=== PATIENT | female | born 1970 | race Caucasian/White ===

== ENCOUNTER 2018-05-26 15:32 | Emergency (ER) | payer OTHER, SELFPAY ==
[2018-05-26 15:37] VITALS: BP 111/73; PULSE 72; RESP 22; TEMP 36.6; O2SAT 100
--- NOTE | 2018-05-26 15:51 | DI.CT_ITS ---
SYMPTOMS/DIAGNOSIS: RIGHT-SIDED CHEST AND ABDOMINAL PAIN CT ANGIOGRAPHY, CHEST: CT angiography was performed with multi slice acquisition and multi planar and 3D reconstruction. CT angiography of the chest was performed according to the usual protocol. 100 cc of Omnipaque 350 was utilized. The lungs are clear and well expanded. No pleural effusion seen. No evidence of pulmonary embolic disease. No thoracic aortic aneurysm or dissection. No mediastinal or hilar adenopathy or mass. CONCLUSION: Negative CT angiography of the chest. ABDOMINAL AND PELVIC CTA: CT angiography was performed with multi slice acquisition and multi planar and 3D reconstruction. CT examination of the abdomen and pelvis was performed following the CT angiography examination of the chest. Abdominal aorta appears normal and all major branches appear intact. The liver, spleen and pancreas appear normal. No biliary dilatation seen and gallbladder is CT normal. Adrenals appear normal bilaterally. Left kidney is unremarkable except for a tiny nonobstructing upper pole calculus. Left ureter is unremarkable in appearance. There is mild right hydronephrosis and hydroureter to the level of the ureterovesical junction, where there is an apparent intramural obstructing 2-3 mm in diameter stone. No additional ureteral stones identified. No significant abdominal wall hernia seen. No abdominal or pelvic adenopathy. Appendix appears normal. No evidence of diverticulitis or bowel obstruction. CONCLUSION: Mild right hydronephrosis and hydroureter secondary to 2-3 mm in diameter obstructing right UVJ stone. No additional findings apart from nonobstructing left renal calculus.
--- NOTE | 2018-05-26 15:57 | ED.GENADUL_ITS ---
Discharge Plan Disposition Patient Disposition: HOME Condition: Stable Discharge Details Chief Complaint: FlankPain Clinical Impression: Right flank pain, Obstruction of right ureteropelvic junction (UPJ) due to stone Primary Care Provider: Le Redd ED Provider: Barak Kemp Home Meds and New Rx's Prescriptions: New ondansetron 4 mg tablet,disintegrating 4 mg PO TID PRN (Reason: nausea and vomiting) 5 Days Qty: 30 RF: 0 oxycodone 5 mg tablet 5 mg PO Q4H PRN (Reason: pain) Qty: 12 RF: 0 Continue SAMAN 180 MG tablet 180 mg PO DAILY RF: 0 ergocalciferol (vitamin D2) [Vitamin D2] 50,000 UNIT capsule 1 tab-cap PO Qty: 12 RF: 3 montelukast [Singulair] 10 MG tablet 10 mg PO HS PRNQty: 90 RF: 12 rizatriptan [Maxalt] 5 MG tablet 5 mg PO PRN RF: 0 cyclobenzaprine 10 MG tablet 10 mg PO TID PRNQty: 30 RF: 0 tramadol 50 MG tablet 50 mg PO TID PRNQty: 30 RF: 0 prochlorperazine maleate 10 MG tablet 10 mg PO TID PRNQty: 15 RF: 0 blood sugar diagnostic [Blood Glucose Test] 1 EACH strip 1 ea Miscellaneous DAILY Qty: 100 RF: 12 lancets 1 EACH misc 1 ea Miscellaneous DAILY Qty: 100 RF: 12 estradiol [Vagifem] 10 MCG tablet 10 mcg VG 2X Week Qty: 25 RF: 0 metaxalone [Skelaxin] 800 MG tablet 800 tab PO TID Qty: 270 RF: 0 cetirizine [Zyrtec] 10 MG capsule 10 mg PO DAILY RF: 0 Discharge Instructions Instructions: Kidney Stones (ED) Additional Instructions: take 1000mg tylenol and 600mg ibuprofen every 6 hours for pain as needed. If you need additional pain relief take 1 oxycodone. do not drink alcohol or drive if you take this medicine if you have persistent vomit or high fevers return to the emergency department Discharge Data Discharge Physician: Barak Kemp Medical Decision Making 47 yo female comes in with right sided oblique and lower right chest pain that started acutely just prior to arrival and has neve rhad this pain before and appears uncomfortable on exam. Given location of pain will image to eval for pe , kidney stone, pneumoperitoneum. Pain is not exertional and no chest pressure so doubt acs at this time labs unremarkable, and ct shows no pe, does have a small 2mm stone at the right uvj. Her pain is controlled now. will send home with pain medications and nausea medicine and have her f/u with urology, return precautions given Differential Diagnosis cholecystitis, kidney stone, Pe, pneumoperitoneum HPI General Mode of arrival: ambulatory . Date/Time Provider Initiated Documentation: 05/26/18 15:39 . Limitations to Documentation: no limitations . Information obtained by: patient . History of Present Illness 47 year old F presents to the emergency department with the chief complaint of right sided abdominal and chest pain, described as severe, with intensity rated at 9. Quality is described as sharp, No relieving factors improve symptom(s), No exacerbating factors reported . Patient notes other (nausea) . Patient did receive the following treatments prior to arrival, none Related Data Home Medications Medication Instructions Recorded Confirmed Saman 180 mg PO DAILY tab-cap 01/20/02/09/17 ergocalciferol (vitamin D2) 1 tab-cap PO M-W-F #12 tab-cap 02/23/16 [Vitamin D2] montelukast [Singulair] 10 mg PO HS PRN #90 tab-cap 03/09/17 rizatriptan [Maxalt] 5 mg PO PRN 09/08/17 10/08/17 cyclobenzaprine 10 mg PO TID PRN #30 tab-cap 09/28/17 cetirizine [Zyrtec] 10 mg PO DAILY 10/08/17 10/08/17 tramadol 50 mg PO TID PRN #30 tab-cap 10/10/17 prochlorperazine maleate 10 mg PO TID PRN #15 tab-cap 11/07/17 blood sugar diagnostic [Blood #100 strip 01/10/18 Glucose Test] lancets #100 ea 01/10/18 estradiol [Vagifem] 10 mcg VG 2X Week #25 tab-cap NS 02/06/18 metaxalone [Skelaxin] 800 tab PO TID #270 tab-cap 03/22/18 ondansetron 4 mg PO TID PRN 5 Days #30 tab 05/26/18 oxycodone 5 mg PO Q4H PRN #12 tab 05/26/18 Previous Rx's Medication Instructions Recorded blood sugar diagnostic [Blood #100 strip 01/10/18 Glucose Test] lancets #100 ea 01/10/18 estradiol [Vagifem] 10 mcg VG 2X Week #25 tab-cap NS 02/06/18 metaxalone [Skelaxin] 800 tab PO TID #270 tab-cap 03/22/18 ondansetron 4 mg PO TID PRN 5 Days #30 tab 05/26/18 oxycodone 5 mg PO Q4H PRN #12 tab 05/26/18 Allergies Allergy/AdvReac Type Severity Reaction Status Date / Time Sulfa (Sulfonamide Allergy Severe Significant Unverified 05/26/18 17:23 Antibiotics) swelling homatropine methylbromide Allergy Intermediate Itchy Unverified 05/26/18 17:23 [From Hycodan] hydrocodone Allergy Intermediate ITCHY Unverified 05/26/18 17:23 hydrocodone bitartrate Allergy Intermediate Itchy Unverified 05/26/18 17:23 [From Hycodan] Penicillins Allergy Intermediate RASH HIVES Unverified 05/26/18 17:23 citalopram AdvReac Mild HEADACHE Unverified 05/26/18 17:23 NSAIDS (Non-Steroidal AdvReac Unknown Unverified 05/26/18 17:23 Anti-Inflamma General Stated Complaint: FlankPain LEILA: 3 Review of Systems Review of Systems All systems reviewed & are unremarkable except as noted in HPI and below Constitutional Denies chills, Denies fever(s) and Denies weakness Eyes Denies loss of vision ENT Denies change in voice Cardiovascular Denies dyspnea Respiratory Denies dyspnea Gastrointestinal Denies vomiting Genitourinary Denies dysuria Musculoskeletal Denies joint swelling Integumentary/Breasts Denies rash Neurologic Denies loss of vision and Denies weakness Psychiatric Denies depression Endocrine Denies cold intolerance and Denies heat intolerance Allergic/Immunologic Reports urticaria PFSH Family History Mother No problems noted. Father Essential hypertension Heart disease Hyperlipidemia Cerebrovascular accident Glaucoma Sister No problems noted. Sister No problems noted. Sister No problems noted. Brother No problems noted. Brother No problems noted. Grandfather Diabetes Essential hypertension Personal history of malignant neoplasm Heart disease Hyperlipidemia Grandfather Heart disease Grandmother Essential hypertension Hyperthyroidism Grandmother Essential hypertension Heart disease Hyperlipidemia Medical History Endometriosis Internal hemorrhoid Iron deficiency anemia Pre-eclampsia affecting , antepartum Thyroid nodule Social History Smoking/Tobacco Use Status: Former Tobacco Use Surgical History section Excision, Distal Clavicle Hysterectomy, Laproscopic Left Salpingectomy (02/09/17) Ligation of fallopian tube (~11/2003) Shoulder Manipulation (10/24/12) Tonsillectomy Exam Const Orientation: alert HENMT Head: normal to inspection Ears: external ears normal General nose exam: external nose normal Mouth: moist mucous membranes Eyes General: appearance normal, both eyes and all related structures Neck Neck: normal visual inspection Resp Effort & Inspection: normal respiratory effort and able to speak in complete sentences Cardio Rate: regular rate GI Inspection: normal to inspection and other (right oblique tenderness) Skin General skin exam: no rashes or lesions noted Neuro General: alert and oriented x3 Extrem General: normal to inspection Psych Mental Status: mental status grossly normal Course Vital Signs Temperature 36.6 C 05/26/18 15:37 Pulse 72 05/26/18 15:37 Respiratory Rate 22 05/26/18 15:37 Blood Pressure 111/73 05/26/18 15:37 Pulse Oximetry 100 05/26/18 15:37 Temperature 36.6 C 05/26/18 15:37 Temperature Source Skin 05/26/18 15:37 Pulse 72 05/26/18 15:37 Respiratory Rate 22 05/26/18 15:37 Blood Pressure 111/73 05/26/18 15:37 Pulse Oximetry 100 05/26/18 15:37 Oxygen Delivery Method Room Air 05/26/18 15:37 Oxygen Flow Rate 0 05/26/18 15:37 Pain Level 10 05/26/18 15:37 Comment 05/26/18 15:37
[2018-05-26] MEDS: Normal Saline 1,000 ML 1000 ML IV (16:05)
[2018-05-26] MEDS: Ondansetron 4 MG/2 ML VIAL IVP (16:07)
[2018-05-26] MEDS: fentaNYL 100 MCG/2 ML VIAL 50 MCG IVP ×2 (16:08→16:49)
[2018-05-26 16:12] LABS: Abs Immature Grans 0.02 k/cumm (0.0-0.09); Absolute Basophil Count 0.03 k/cumm (0.0-0.2); Absolute Eosinophil Count 0.08 k/cumm (0.0-0.7); Absolute Monocyte Count 1.06 k/cumm (0.11-0.7); Basophils % 0.2; Eosinophils % 0.6; HCT 46.3 % (36.0-46.0); HGB 16.1 g/dL (12.0-15.5); Immature Grans % 0.2; Lymphocytes % 32.7; Mean Corp. HGB Concentration 34.8 g/dL (32.0-36.0); Mean Corpuscular Volume 86.4 fL (80-95); Mean Platelet Volume 10.1 fL (8.0-11.0); Monocytes % 8.1; Neutrophils % 58.2; Platelet Count 233 x1000/uL (130-400); RBC 5.36 m/cumm (4.00-5.20); RBC Distribution Width 12.9 % (11.7-14.6); White Blood Cell Count 13.07 k/cumm (4.4-10.8)
[2018-05-26] MEDS: Ketorolac 15 MG/ML VIAL IVP (16:15)
[2018-05-26 16:21] LABS: Absolute Lymphocyte Count 4.27 k/cumm (1.2-3.4); Absolute Neutrophil Count 7.61 k/cumm (1.2-6.7)
[2018-05-26 16:26] LABS: ALT 26 U/L (12-78); AST 15 U/L (15-37); Albumin 4.1 g/dL (3.4-5.0); Alkaline Phosphatase 71 U/L (46-116); Anion Gap 13.7 mmol/L (3-11); BUN 18 mg/dL (7-18); Bilirubin, Direct 0.11 mg/dL (0.00-0.20); Bilirubin, Total 0.5 mg/dL (0.2-1.0); CO2 24.3 mmol/L (21.0-32.0); CREATININE 0.89 mg/dL (0.55-1.02); Calcium 9.3 mg/dL (8.5-10.1); Chloride 104 mmol/L (98-107); Glucose 99 mg/dL (70-100); INR 1.1 (1.0-3.5); Lipase 214 U/L (73-393); Magnesium 2.1 mg/dL (1.8-2.4); Potassium 3.6 mmol/L (3.5-5.1); Prothrombin Time 10.5 sec (9.3-10.8); Sodium 142 mmol/L (136-145)
[2018-05-26 16:28] LABS: Troponin I < 0.02 ng/mL (0.00-0.06)
[2018-05-26] MEDS: Omnipaque 350 MG/ML 100 ML BTL IJ (16:32)
--- NOTE | 2018-05-26 17:08 | DI.VRAD_ITS ---
EXAM: CT Angiography Chest With Intravenous Contrast CLINICAL HISTORY: 47 years old, female; Pain; Chest pain; Right-sided chest pain; Abdominal pain; Generalized; Patient HX: Right sided chest/abdominal pain TECHNIQUE: Axial computed tomographic angiography images of the chest with intravenous contrast using pulmonary embolism protocol. MIP reconstructed images were created and reviewed. COMPARISON: No relevant prior studies available. FINDINGS: No evidence of PE. No significant focal consolidation. No pleural effusion. No pneumothorax. No adenopathy. Unremarkable upper abdomen. No acute mediastinal or aortic abnormality. Impression: No specific etiology identified for the patient's symptoms. EXAM: CT Angiography Abdomen With Intravenous Contrast CLINICAL HISTORY: 47 years old, female; Pain; Chest pain; Right-sided chest pain; Abdominal pain; Generalized; Patient HX: Right sided chest/abdominal pain TECHNIQUE: Axial computed tomographic angiography images of the abdomen with intravenous contrast. MIP reconstructed images were created and reviewed. COMPARISON: CR CHEST 2 VIEWS PA,LAT 03/14/2016 8:23 AM FINDINGS: 2.3 mm stone at the right ureterovesical junction resulting in mild obstruction of the right kidney. Appendix is normal. Normal appearing solid organs. No intestinal obstruction. No free fluid. No free air. No inflammatory changes. Impression: 2.3 mm stone at the right ureterovesical junction resulting in mild obstruction of the right kidney. Dictated and Authenticated by: Porfirio Fernández MD. Ordering:GAGE HARMON MD
[2018-05-26] MEDS: HYDROmorphone 2 MG/ML VIAL 1 MG IVP (17:17)
[2018-05-26] MEDS: Ketorolac 30 MG/ML VIAL IVP (17:17)
[2018-05-26 17:42] LABS: Bilirubin Negative (Negative); Blood Negative (Negative); Clarity Clear; Glucose Negative (Negative); Ketones Negative (Negative); Leukocyte Esterase Negative (Negative); Nitrite Negative (Negative); Urobilinogen 0.2 EU/dL (Up TO 0.2)
[2018-05-26] MEDS: oxyCODONE 5 MG TAB PO (18:06)
[2018-05-26] MEDS: Ondansetron O.D.T. 4 MG TABEF PO (18:09)
[2018-05-26] MEDS: oxyCODONE 5 MG TAB 20 MG PO (18:11)
[2018-05-26 18:14] VITALS: BP 134/90; PULSE 71; TEMP 36.5; O2SAT 99
[2018-05-26 18:22] VITALS: BP 134/90; PULSE 71; TEMP 36.5; O2SAT 99
== END 2018-05-26 18:29 | disposition home or self-care (01) ==
LOC: ER 18:30
PROVIDERS: Emergency Provider Emergency Medicine; PCP Family Medicine
DX: N13.5 Crossing vessel and stricture of ureter without hydronephrosis (principal); R10.9 Unspecified abdominal pain; R11.0 Nausea
CPT/HCPCS: 36415; 71275; 74177; 80053; 80076; 83690; 93005; 96361; 96374; 96375; 96376; 99285; 81003; 83735; 84484; 85025; 85610; 93010; J1885; J2405; J3010; J3490

== ENCOUNTER 2018-06-06 12:54 | Outpatient (REF) | payer OTHER, SELFPAY ==
[2018-06-08 20:41] LABS: Source: Kidney
== END 2018-06-06 13:14 ==
LOC: LBN 12:54
PROVIDERS: PCP Family Medicine; Visit Provider Urology
DX: N20.0 Calculus of kidney (principal)
CPT/HCPCS: 82360

== ENCOUNTER 2018-06-12 00:12 | Outpatient (CLI) | payer OTHER, SELFPAY ==
--- NOTE | 2018-06-12 13:50 | DI.US_ITS ---
SYMPTOMS/DIAGNOSIS: RIGHT URETERAL CALCULUS, N20.1, ? RESIDUAL HYDRONEPHROSIS RENAL ULTRASOUND: Comparison CT scan is 05/26/18. The right kidney measures 11.6 cm long. No renal mass, calculus or obstruction is seen. There is normal blood flow to the right kidney. The left kidney measures 11.6 cm long. No renal mass or hydronephrosis is identified. There is a 0.7 mm echogenic focus in the mid pole of the left kidney. This corresponds to a calcification seen in the renal cortex on the CT scan from 05/26/18. There is normal blood flow to the left kidney. The prevoid urinary bladder volume is 241 cc. The bladder wall appears smooth. No intraluminal masses are present. Both ureteral jets were visualized. Postvoid urinary bladder volume is 11 cc. IMPRESSION: No evidence of hydronephrosis. Stable left renal calcification.
== END 2018-06-12 00:32 ==
PROVIDERS: PCP Family Medicine; Visit Provider Urology
DX: N20.1 Calculus of ureter (principal)
CPT/HCPCS: 76770

== ENCOUNTER 2018-07-10 09:50 | Outpatient (CLI) | payer OTHER, SELFPAY ==
[2018-07-10 11:51] LABS: Iron 164 ug/dL (50-175)
[2018-07-10 12:00] LABS: ALT 43 U/L (12-78); AST 23 U/L (15-37); Albumin 3.7 g/dL (3.4-5.0); Alkaline Phosphatase 68 U/L (46-116); Anion Gap 6.1 mmol/L (3-11); BUN 16 mg/dL (7-18); Bilirubin, Total 0.8 mg/dL (0.2-1.0); CO2 30.9 mmol/L (21.0-32.0); Calcium 9.4 mg/dL (8.5-10.1); Chloride 103 mmol/L (98-107); Cholesterol 228 mg/dL (50-200); Glucose 100 mg/dL (70-100); HDL Cholesterol 75 mg/dL (40-60); LDL CHOLESTEROL 137 mg/dL (<100); Potassium 4.3 mmol/L (3.5-5.1); Sodium 140 mmol/L (136-145); TSH (W/Ref FT4) 1.78 uIU/mL (0.358-3.74); Total Protein 6.8 g/dL (6.4-8.2); Triglyceride 84 mg/dL (30-150)
[2018-07-10 12:51] LABS: Hemoglobin A1C 5.3 % (4.5-6.2)
[2018-07-12 04:31] LABS: Vitamin D 25 Total 29.6 ng/ml (30-100)
== END 2018-07-10 10:10 ==
PROVIDERS: PCP Family Medicine; Visit Provider Family Medicine
DX: D50.9 Iron deficiency anemia, unspecified (principal); E55.9 Vitamin D deficiency, unspecified; E04.1 Nontoxic single thyroid nodule; R73.09 Other abnormal glucose; Z00.00 Encounter for general adult medical examination without abnormal findings
CPT/HCPCS: 36415; 80053; 80061; 82306; 83721; 83036; 83540; 84443

== ENCOUNTER 2018-07-11 16:39 | Outpatient (CLI) | payer OTHER, SELFPAY ==
--- NOTE | 2018-07-11 15:00 | DI.RAD_ITS ---
SYMPTOMS/DIAGNOSIS: ROLLED RT ANKLE RIGHT ANKLE: Comparison is made with [id number]. No fracture or ankle mortise widening is seen. IMPRESSION: Negative right ankle.
== END 2018-07-11 16:59 ==
PROVIDERS: PCP Family Medicine; Visit Provider Psychiatry & Neurology Neurology
DX: M25.571 Pain in right ankle and joints of right foot (principal); S93.401A Sprain of unspecified ligament of right ankle, initial encounter
CPT/HCPCS: 73610

== ENCOUNTER 2018-07-19 11:09 | Outpatient (CLI) | payer OTHER, SELFPAY ==
--- NOTE | 2018-07-19 10:38 | DI.US_ITS ---
SYMPTOM/DIAGNOSIS: PAIN AFTER FALL, M79.605 LEFT LOWER EXTREMITY ULTRASOUND: In the mid to distal thigh, there are superficial veins which are non compressible and contain thrombus. The deep venous system appears freely compressible. No deep venous thrombosis is identified. No Kline's cyst is seen. IMPRESSION: Superficial thrombophlebitis of the distal medial thigh. No deep venous thrombosis is identified.
== END 2018-07-19 11:29 ==
PROVIDERS: PCP Family Medicine; Visit Provider Internal Medicine
DX: M79.652 Pain in left thigh (principal); I80.02 Phlebitis and thrombophlebitis of superficial vessels of left lower extremity
CPT/HCPCS: 93971

== ENCOUNTER 2018-08-03 00:49 | Outpatient (CLI) | payer OTHER, SELFPAY ==
--- NOTE | 2018-08-03 08:25 | DI.MRI_ITS ---
SYMPTOM/DIAGNOSIS: RT SHOULDER PAIN, ? ROTATOR CUFF TEAR RIGHT SHOULDER MRI: There are no plain films for comparison. Proton density and fat suppressed T 2 axial and coronal and T 1 and fat suppressed T 2 sagittal sequences were performed. There is no evidence of a joint effusion. There are mild degenerative changes of the AC joint but no evidence of impingement. There is no fluid in the subacromial subdeltoid bursa. No rotator cuff tendon tears are identified. There is question of some increased signal in the superior labrum which could represent a labral tear. IMPRESSION: Question of a superior labral tear. No evidence of a rotator cuff tear.
== END 2018-08-03 01:09 ==
PROVIDERS: PCP Family Medicine; Visit Provider Orthopaedic Surgery
DX: M25.511 Pain in right shoulder (principal); M19.011 Primary osteoarthritis, right shoulder
CPT/HCPCS: 73221

== ENCOUNTER 2018-10-11 00:45 | Outpatient (CLI) | payer OTHER, SELFPAY ==
--- NOTE | 2018-10-11 07:02 | DI.RAD_ITS ---
SYMPTOM/DIAGNOSIS: INJURY GLENOID LABRUM, S43.431A, SUPERIOR GLENOID LABRUM LESION RT SHOULDER FLUOROSCOPY RIGHT SHOULDER INJECTION: Fluoroscopy Time: 13.8 seconds Fluoroscopy was provided for Dr. Weeks for guidance with right shoulder injection. Please see procedure note for details.
--- NOTE | 2018-10-11 17:35 | OPPNE_ITS ---
Date of service: 10/11/18 Time of Service: 12:34 Procedure Note Date of procedure: 10/11/18 Procedure: Right Shoulder Injection Surgeon/Proceduralist/Physician: Tim Weeks Procedure Diagnosis: Right SLAP tear Procedure Indications: Rhoda has had persistent pain of the RIGHT shoulder. Noninvasive measures have been tried. To serve as both diagnostic and therapeutic, an injection under fluoroscopy was recommended. I had discussed the risks of the procedure and the patient elected to proceed. Procedure Description: Rhoda was greeted in the flouroscopy room. The correct side was identified and the consent was reviewed with the patient and signed. The patient was then placed in the supine position on the fluoroscopy table. The RIGHT shoulder was then prepped with Chloraprep. The anterior injection starting point was identiifed by bony landmarks and fluoroscopy. The skin and soft tissue in the tract of the injection was anesthetized with 1% Lidocaine. A spinal needle was then inserted deep into the shoulder joint at the level of the recess between the glenoid and superior humeral head. A small amount of Omnip aque solution was injected to confirm intraarticular placement. Once confirmed, the shoulder was injected with 4cc of 0.5% Bupivicaine and 80mg of Depo-Medrol. A bandaid was placed on the injection site. The patient tolerated the procedure well and noted improvement in pre-injection pain.
== END 2018-10-11 01:05 ==
PROVIDERS: PCP Family Medicine; Visit Provider Student in an Organized Health Care Education/Training Program
DX: M25.511 Pain in right shoulder (principal); S43.431A Superior glenoid labrum lesion of right shoulder, initial encounter
CPT/HCPCS: 20610; 77002

== ENCOUNTER 2018-10-11 23:31 | Outpatient (CLI) | payer OTHER, SELFPAY ==
--- NOTE | 2018-10-11 08:49 | DI.RAD_ITS ---
SYMPTOM/DIAGNOSIS: CHECK KIDNEY STONE SIZE AND PLACEMENT, N20.0, CALCULUS OF KIDNEY KUB: There is a large quantity of stool seen greatest in the ascending and transverse colon. No urinary tract calculi are visible. The kidneys are partially obscured by stool and bowel gas. Scoliosis and mild degenerative changes are seen in the lumbar spine. IMPRESSION: No visible urinary tract calculi.
== END 2018-10-11 23:51 ==
PROVIDERS: PCP Family Medicine; Visit Provider Nurse Practitioner Gerontology
DX: N20.0 Calculus of kidney (principal)
CPT/HCPCS: 74018

== ENCOUNTER 2019-01-04 00:37 | Outpatient (CLI) | payer OTHER, SELFPAY ==
--- NOTE | 2019-01-04 14:02 | DI.US_ITS ---
SYMPTOMS/DIAGNOSIS: MONITOR KNOWN LEFT KIDNEY STONE, N20.0 RENAL ULTRASOUND: Comparison is made with May,. The kidneys are normal in size and echogenicity and show normal parenchymal thickness. There is no evidence of hydronephrosis or mass. A calcification is again noted in the upper to mid left kidney peripherally, measuring 5 x 7 mm. The bladder was empty. IMPRESSION: No change in nonobstructing stone in the left kidney. No hydronephrosis or new calculi are seen.
== END 2019-01-04 00:57 ==
PROVIDERS: PCP Family Medicine; Visit Provider Urology
DX: N20.0 Calculus of kidney (principal)
CPT/HCPCS: 76770

== ENCOUNTER 2019-02-22 00:58 | Outpatient (CLI) | payer OTHER, SELFPAY ==
--- NOTE | 2019-02-22 08:40 | DI.MRI_ITS ---
SYMPTOM/DIAGNOSIS: SHOULDER AND ARM PAIN, M53.1, DECREASED RANGE OF MOTION, LT ARM TINGLING CERVICAL SPINE MRI: Routine noncontrast examination was performed. Comparison is made with 07/16/13. There is normal signal in the spinal cord. No evidence of tonsillar ectopia is present. At C 7-T 1, there is no focal disc herniation, central spinal canal or neural foraminal stenosis. At C 6-7, there is mild prominence of the osteophyte disc complex but no central spinal canal or neural foraminal stenosis is seen. At C 5-6, there is prominence of the osteophyte disc complex and uncovertebral joints bilaterally causing moderate bilateral neural foraminal stenosis. It is slightly progressed compared to the prior examination. No significant central spinal canal stenosis is seen. At C 4-5, there is mild prominence of the osteophyte disc complex and mild narrowing of the left neural foramen. No significant central spinal canal or right neural foraminal stenosis is seen. C 3-4 and C 2-3 show no focal disc herniation, central spinal canal or neural foraminal stenosis. Marrow signal is within normal limits. The soft tissues are unremarkable. IMPRESSION: Degenerative changes in the cervical spine, particularly from C 4- 5 through C 6-7. Neural foraminal stenosis is seen at C 5-6 bilaterally. It is slightly progressed compared to the prior examination.
== END 2019-02-22 01:18 ==
PROVIDERS: PCP Family Medicine; Visit Provider Chiropractor
DX: M25.512 Pain in left shoulder (principal); M79.602 Pain in left arm; M25.812 Other specified joint disorders, left shoulder; M47.812 Spondylosis without myelopathy or radiculopathy, cervical region
CPT/HCPCS: 72141

== ENCOUNTER 2019-04-18 10:43 | Outpatient (REF) | payer OTHER, SELFPAY | END 2019-04-18 11:03 | LOC: LBN 10:43 | PROVIDERS: PCP Family Medicine; Visit Provider Urology | DX: N20.0 Calculus of kidney (principal) | CPT/HCPCS: 82365 ==

== ENCOUNTER 2019-04-19 07:54 | Outpatient (CLI) | payer OTHER, SELFPAY ==
--- NOTE | 2019-04-19 08:29 | HPE_ITS ---
Assessment and Plan (1) Injury of superior glenoid labrum of right shoulder: Current visit: No Status: Acute Qualifiers: Encounter type: subsequent encounter Qualified Code(s): S43.431D - Superior glenoid labrum lesion of right shoulder, subsequent encounter (2) Arthrosis of right acromioclavicular joint: Current visit: No Status: Acute (3) Tendonitis of shoulder, right: Current visit: No Status: Acute Plan: Educated patient on surgery covering surgical technique, recovery process, benefits and risks including but not limited to risk of infection, blood clot, damage to soft tissue/blood vessels/nerves in detail. After discussion patient gives verbal understanding of risks and elects to proceed with scheduling surgery. Patient had opportunity to have questions answered to their satisfaction. They will contact office if issues arise. Patient will continue to be scheduled for right distal clavicle excision, rotator cuff debridement and biceps tenodesis with Dr. Weeks. History of Present Illness Narrative: Ms. Mata is a [id number] 48-year-old female who presents to clinic for pre-operative visit for right distal clavicle excision, rotator cuff debridement and biceps tenodesis with Dr. Weeks. Patient has been seen in orthopedic clinic numerous times for her right shoulder pain. Continues to experience extreme discomfort that radiates from the right side of her neck down the anterior lateral portion of her upper arm down into her hand especially her ring finger. She reports previously history of numbness and tingling but denies any current symptoms. Pain is constant but aggravated with daily activities including getting dressed, picking up groceries, moving her pocketbook and attempting to pick her grandson. Due to lack of improvement she stopped attending physical therapy in December 2018. Since December she has also seen a chiropractor who believed her pain was originating from her neck and recommended MRI. She then saw her neurologist, Dr. Lin on 02/18/19 who stated that her pain was not typical for radiculopathy. Previously she has had an MRI from 08/03/[address] Weeks's note from 09/14/18 that stated: MRI does not reveal any significant rotator cuff pathology but does have superior labral lesion. Due to the presence of her superior labral tear she underwent an injection under fluoroscopy on 10/11/18 which helped significantly in terms of decreased intensity of her pain and improved ROM. Unfortunately, she continues to have severe right shoulder pain that limits her activity despite rest, activity modification, PT and an injection. She denies any recent injuries or falls. Due to her continued pain she was offered surgical intervention and was eager to proceed. Pertinent Surgical Information Denies past medical history of: Hypertension, stroke, cardiac issues, angina, COPD, sleep apnea, liver issues, hepatitis, gastrointestinal issues, ulcers, hyperlipidemia, bleeding disorders, seizures, anxiety, depression, diabetes, autoimmune disorders Denies prior complications from surgery or anesthesia. Review of Systems Constitutional Denies fever(s), Denies frequent falls and Denies headache(s) Eyes Denies change in vision ENT Denies dizziness, Denies ear discharge, Denies headache(s), Denies epistaxis, Denies nasal discharge and Denies sore throat Cardiovascular Denies chest pain, Denies rapid heart rate, Denies irregular heart rhythm, Reports dyspnea (reports dyspnea due to allergies; denies any recent changes), Denies dyspnea on exertion, Denies orthopnea, Denies paroxysmal nocturnal dyspnea and Denies slow heart rate Respiratory Reports cough (reports cough with allergies in the morning; denies any recent change), Reports dyspnea (reports dyspnea due to allergies; denies any recent changes), Denies dyspnea on exertion and Denies wheezing Gastrointestinal Denies abdominal pain, Denies melena, Denies hematochezia, Denies constipation, Denies diarrhea, Denies nausea and Denies vomiting Genitourinary Denies hematuria, Denies dysuria and Denies urinary urgency Musculoskeletal Reports as per HPI, Denies numbness and Denies tingling Neurologic Denies dizziness, Denies frequent falls, Denies headache(s), Denies numbness and Denies tingling Psychiatric Denies anxiety and Denies depression Allergic/Immunologic Denies wheezing [facility] Medical History (Updated 04/19/19 @ 09:38 by Yaz Stallworth) Abnormal involuntary movement (Resolved) 06/17 BRAIN MRI NEG - MAXILLARY RETENTION CYSTS; 06/17 C SPINE MRI: C4-6, R C4-5, L C5-6 DISC-SPONDYLIC COMPLEX. Acquired deviated nasal septum (Resolved 07/29/13) Acute left-sided low back pain without sciatica (Resolved 09/28/17) Acute left-sided thoracic back pain (Resolved 06/16/16) Adhesive capsulitis of left shoulder (Resolved) 10/24/14; DR. 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 The injection seems to take effect within about 5 minutes with the patient have improved range of motion of the right shoulder and a negative impingement sign. She is put on internal rotation stretching exercise home program in addition to PT which will resume next week. She will follow-up with me in 4 weeks for progress evaluation if she has not improved to any degree then I would consider an MRI. I did review a chest x- ray in 2016 that showed no gross shoulder girdle abnormalities. Postnasal drip (Chronic 04/21/14) Pre-eclampsia affecting , antepartum Sciatica (Resolved 01/11/02) 03/15 MRI: L3-L5 STENOSIS, L4 R HERNIATION, L5-S1 L SYNOVIAL CYST; CONSULT: NOT A SURGICAL CANDIDATE Shoulder joint pain (Resolved 10/17/13) 07/23/14; S/P EXCSION OF LEFT DISTAL CLAVICLE; DR. VICENTE Small intestinal bacterial overgrowth (Resolved 01/19/16) [facility] Breath Test Tendonitis of shoulder, right (Acute) Thyroid nodule (Chronic 10/30/15) TMJ (sprain of temporomandibular joint) (Resolved 04/06/15) Trochanteric bursitis, right hip (Chronic 09/08/17) Unspecified hereditary and idiopathic peripheral neuropathy (Chronic 04/10/13) NL B12/ALEX/RA/TSH/GLUCO Vitamin D deficiency (Chronic 12/03/15) Surgical History section X 3 Excision, Distal Clavicle 07/23/14-LEFT Hysterectomy, Laproscopic Left Salpingectomy (02/09/17) Ligation of fallopian tube (~11/2003) Shoulder Manipulation (10/24/12) DR. VICENTE; LEFT SHOULDER Tonsillectomy Family History Mother Thyroid disease Father Essential hypertension Hyperlipidemia Stroke Glaucoma Thyroid disease CAD (coronary artery disease) Sister Alcohol abuse Cirrhosis of liver Sister Thyroid disease Sister Rheumatoid arthritis Brother Alcohol abuse Brother Depression Maternal Grandfather , AGE 76 Diabetes Essential hypertension Heart disease Hyperlipidemia Pancreatic cancer Paternal Grandfather , AGE 80 Heart disease Essential hypertension Hyperlipidemia Maternal Grandmother , AGE 82 Essential hypertension Hyperthyroidism Paternal Uncle , AGE 100 Essential hypertension Heart disease Hyperlipidemia Son No problems noted. Son No problems noted. Daughter , Stillborn No problems noted. 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 Duration: 30-45 minutes/day Frequency: 1-2 times per week Marina/Christianity: No preference Special marina needs: No Do you feel safe at home: Yes Do you feel safe in your relationship?: Yes Meds Home Medications Medication Instructions Recorded Confirmed Type Ana 180 mg PO DAILY tab-cap 01/20/14 04/19/19 History Blood Glucose Test #100 strip 01/10/18 03/01/19 Rx lancets #100 ea 01/10/18 03/01/19 Rx cholecalciferol (vitamin D3) 2,000 2,000 unit PO DAILY 08/21/18 04/19/19 History unit tablet propranolol 10 mg tablet 10 mg PO DAILY #90 tab 08/21/18 04/19/19 Rx prochlorperazine maleate 10 mg 10 mg PO TID PRN #15 tab-cap 02/18/19 04/19/19 Rx tablet rizatriptan 5 mg tablet See Rx Instructions PO .COMPLEX #6 02/18/19 04/19/19 Rx tab Allergies Allergy/AdvReac Type Severity Reaction Status Date / Time Sulfa (Sulfonamide Allergy Severe Significant Unverified 04/19/19 08:45 Antibiotics) swelling homatropine methylbromide Allergy Intermediate Itchy Unverified 04/19/19 08:45 [From Hycodan] hydrocodone Allergy Intermediate ITCHY Unverified 04/19/19 08:45 hydrocodone bitartrate Allergy Intermediate Itchy Unverified 04/19/19 08:45 [From Hycodan] Penicillins Allergy Intermediate RASH HIVES Unverified 04/19/19 08:45 citalopram AdvReac Mild HEADACHE Unverified 04/19/19 08:45 NSAIDS (Non-Steroidal AdvReac Unknown per pt Unverified 04/19/19 08:45 Anti-Inflamma can't take a lot of them d/t ulcers Exam Const General: cooperative and no acute distress [facility] Head: normal to inspection, normocephalic and atraumatic Ears: external ears normal General nose exam: external nose normal and no nasal discharge Face and sinus: face symmetric Mouth: oral mucosae normal, lip normal, tongue normal and moist mucous membranes Teeth and gingiva: dentition normal Throat: posterior oropharynx normal Eyes General: appearance normal, both eyes and all related structures Pupils: PERRL Neck Neck: trachea midline Carotids: normal carotid upstroke Lymphatic: no lymphadenopathy noted Resp Effort & Inspection: normal respiratory effort and able to speak in complete sentences Auscultation: clear to auscultation bilaterally, no rales, no rhonchi and no wheezes Cardio Heart Sounds: S1 normal, S2 normal and no murmurs Pulses: radial pulses present bilaterally Skin General skin exam: no rashes or lesions noted
== END 2019-04-19 08:14 ==
PROVIDERS: PCP Family Medicine; Visit Provider Student in an Organized Health Care Education/Training Program
DX: S43.431D Superior glenoid labrum lesion of right shoulder, subsequent encounter (principal); M19.011 Primary osteoarthritis, right shoulder; M75.81 Other shoulder lesions, right shoulder; Z01.818 Encounter for other preprocedural examination
CPT/HCPCS: NC

== ENCOUNTER 2019-04-23 09:18 | Day surgery (SDC) | payer OTHER, SELFPAY ==
[2019-04-23] VITALS (9 sets, daily range): BP systolic 122–145; BP diastolic 74–97; PULSE 60–78; RESP 12–17; TEMP 36.4–36.7; O2SAT 97–100
[2019-04-23] MEDS: Lactated Ringers 1,000 ML 80 ML IV ×2 (10:25→13:49)
[2019-04-23] MEDS: Bupivacaine LIPOSOME/PF 133 MG/10 ML VIAL IJ (11:35)
[2019-04-23] MEDS: Bupivacaine 0.25% Pres-Free 30 ML VIAL ×2 (11:35→13:15)
[2019-04-23] MEDS: ceFAZolin 2 GM/50 ML BAG IVPB (12:23)
--- NOTE | 2019-04-23 13:34 | W.PM.DSUDISC ---
Discharge Plan Disposition Patient Disposition: HOME Discharge Details Attending Provider: Tim Weeks Primary Care Provider: Le Redd Home Meds and New Rx's Prescriptions: New acetaminophen 500 mg tablet 1,000 mg PO Q8H PRN (Reason: pain) Qty: 60 RF: 3 ibuprofen 600 mg tablet 600 mg PO TID PRNQty: 90 RF: 3 oxycodone 5 mg tablet 5 mg PO Q4H Qty: 18 RF: 0 Continued cholecalciferol (vitamin D3) 2,000 unit tablet 2,000 unit PO DAILY RF: 0 propranolol 10 mg tablet 10 mg PO DAILY Qty: 90 RF: 3 rizatriptan 5 mg tablet See Rx Instructions PO .COMPLEX Qty: 6 RF: 5 prochlorperazine maleate 10 mg tablet 10 mg PO TID PRN (Reason: nausea and vomiting) Qty: 15 RF: 5 SAMAN 180 MG tablet 180 mg PO DAILY RF: 0 (DME) Blood Glucose Test 1 EACH strip 1 ea Miscellaneous DAILY Qty: 100 RF: 12 (DME) lancets 1 EACH misc 1 ea Miscellaneous DAILY Qty: 100 RF: 12 Discharge Instructions Stand Alone Forms: Desi Harp w/BT, DSU Post op Instructions, Carlos Luna (DSU) Referrals: Tim Weeks MD [ [facility] STAFF PHYSICIAN] - Equipment/Supplies: Sling Activity:: Stay in sling except for hygiene and gentle motion Remove Dressings/Wound Care:: 72 hours Shower/Bathe:: 72 hours Diet:: As Tolerated Discharge Orders Discharge Orders: Discharge Order (Routine); Ordered 04/23/19 Ordered By: Tim Weeks DS: Diagnosis Discharge Diagnosis (1) Injury of superior glenoid labrum of right shoulder: Status: Acute (2) Arthrosis of right acromioclavicular joint: Status: Acute
--- NOTE | 2019-04-24 06:20 | W.PM.OP ---
Date of service: 04/23/19 Time of Service: 14:21 Operative Note DATE OF PROCEDURE: 04/23/19 PRE-OP DIAGNOSIS: Right AC arthritis, right SLAP tear POST-OP DIAGNOSIS: same PROCEDURE: - Mini-Open Distal Clavicle Excision - Extensive debridement of anterior and posterior glenohumeral joint and rotator cuff - Sub-pectoral biceps tenodesis - Subacromial Debridement SURGEON: Tim Weeks DIRECTOR INTERNATIONAL: Alfredo Matt ANESTHESIA: GETA and regional ESTIMATED BLOOD LOSS: 0 PATHOLOGY: none sent COMPLICATIONS: None Patient was transported to: PACU Patient's condition: stable Indications: I have seen Rhoda in clinic for a painful shoulder. Pathology was confirmed based on MRI and exam findings. Nonoperative measures were exhausted but disability and pain persisted. I discussed shoulder arthroscopy and procedures. I reviewed the risks of the procedures to include, but not limited to, bleeding, infection, pain, stiffness, damage to nerves or vessels, recurrence, hardware failure, blood clot. Despite these risks, the patient elected to proceed. Findings: There were signs of arthrosis of the distal clavicle; a 1cm wedge was resected A diagnostic arthroscopy was performed with the following findings: - Glenohumeral Joint: No significant arthritic changes were appreciated - Labrum: Fraying of the anterior labrum was seen in this continued to involve the superior labrum with some detachment from the superior glenoid tubercle especially at the insertion of the biceps tendon - Cuff: No articular sided tearing was appreciated within the rotator cuff - Biceps: Notable inflammatory changes seen at the level of the groove - Subacromial: Some mild bursitis without cuff tear and minimal spurring Procedure Description: Rhoda was greeted in the preoperative holding area where the correct side was identified and marked. The consent was reviewed with the patient and signed. The history and physical was updated. All questions were answered. She was taken back to the PACU for administration of an intrascalene nerve block. Rhoda was then taken to the operating room. The patient was placed into the supine position on the operating room table. A general anesthetic was administered. She was then positioned in the beach chair position. All bony prominences were well padded. The head was placed in a foam head of marketing adometry in a neutral position. Prophylactic antibiotics in the form of Cefazolin were administered. The right arm/shoulder was then prepped with Chloraprep and draped in a standard fashion with stockinette and shoulder drape. A timeout to confirm correct identity, side and site, procedure, allergies, anesthesia, and medical concerns was performed. The arm was placed into a pneumatic dockery, [id number]. The shoulder arthroscopy was then performed. The glenohumeral joint was injected with 20 cc of normal saline with good flow back. A standard posterior portal was made and the joint was entered atraumatically with a blunt arthroscope. Once inside we had good visualization of the structures of the glenohumeral joint. An anterior portal was established with spinal needle localization. A 6.5 mm cannula was inserted. A probe was then used to perform a diagnostic arthroscopy. There is noted to be no significant cartilage damage of the glenoid humeral joint. The labrum was frayed anteriorly and had a type II tear superiorly. There were no loose bodies in the inferior pouch. The superior rotator cuff was attached to the tuberosity. The biceps tendon had no tear but there was notable inflammatory change seen throughout its course of the groove. The subscapularis was intact. Using a shaver and electrocautery I performed a debridement of the undersurface of the rotator cuff were some inflammatory changes seen as well as the labrum from 11:00 to 3:00. Electrocautery device was used to perform a biceps tenotomy for later tenodesis. The biceps tenodesis was then performed. With the arm and some slight external rotation abduction pectoralis major tendon was identified. A 2 cm incision was made overlying the insertion to the humerus. Sharp dissection was carried onto the skin. Blunt dissection was carried down to the fascia the biceps musculature. This was entered with a tenotomy scissors. The biceps groove was palpable and the biceps tendon was palpable. It was withdrawn from the wound using Allis clamp and finger dissection. Once the biceps tendon was out of the arm the biceps groove was prepared using a rasp. A Mitek Lupine anchor was inserted into the biceps groove at the level of the pectoralis major insertion. This was tested to make sure had excellent fixation into the bone. Using a free needle I then placed a locking Krak?w stitch and each side of the biceps tendon using one limb from each suture at the level of the muscular tendinous junction and moving proximally. Excess tendon was then cut. Using the free suture limb I then shuttled the tendon down to the prepared surface of the humerus. It laid flat against the humerus. It was at the level of the pectoralis major tendon. The suture limbs were then tied. The wound was irrigated. The subcutaneous tissue was reapproximated with a 2-0 Vicryl. The arthroscope was then inserted into the subacromial space. The 6.5 mm cannula was placed lateral to the CA ligament. A complete bursectomy is performed anteriorly, posteriorly, and laterally with electrocautery and shaver. This had excellent exposure of the rotator cuff. The bursal side rotator cuff was without any significant tearing that was appreciated. There was no notable anterolateral spurring and therefore an acromioplasty was not performed and the CA ligament was left attached to the acromion. The scope equipment was removed from the shoulder. Excess fluid was evacuated. The portal sites were closed with 3-0 Monocryl. The wounds were dressed with Steri-Strips, 4 x 4's, ABDs, Medipore tape. A sling was applied. The patient tolerated the procedure well and was returned to the Same Day Surgery area in a stable condition suffering no known complication.
== END 2019-04-23 16:58 | disposition home or self-care (01) ==
PROVIDERS: PCP Family Medicine; Visit Provider Student in an Organized Health Care Education/Training Program
PROC: (CPT 29805; principal; 2019-04-23 12:45)
PROC: (CPT 23430; 2019-04-23 12:45)
PROC: (CPT 23120; 2019-04-23 12:45)
DX: S43.431A Superior glenoid labrum lesion of right shoulder, initial encounter (principal); M19.011 Primary osteoarthritis, right shoulder; X58.XXXA Exposure to other specified factors, initial encounter; M75.21 Bicipital tendinitis, right shoulder; G89.18 Other acute postprocedural pain; M75.51 Bursitis of right shoulder; G25.0 Essential tremor
CPT/HCPCS: 23430; 29823; 29826; 23120; 76942; J0690; J1100; J2250; J2405; J3010; L3650; L3670

== ENCOUNTER 2019-07-15 10:34 | Outpatient (CLI) | payer OTHER, SELFPAY ==
--- NOTE | 2019-07-15 08:58 | DI.RAD_ITS ---
EXAM: XR SHOULDER RT COMPLETE 2+V INDICATION: R shoulder pain. COMPARISON: CHEST 2 VIEWS PA,LAT from 03/14/2016 TECHNIQUE: 2D digital imaging was performed. FINDINGS: There has been interval resection of the distal clavicle. No acute fracture or dislocation is seen. The soft tissues are unremarkable. IMPRESSION: Postsurgical changes in the right shoulder.
== END 2019-07-15 10:54 ==
PROVIDERS: PCP Family Medicine; Visit Provider Physician Assistant
DX: M25.511 Pain in right shoulder (principal); M19.011 Primary osteoarthritis, right shoulder; Z98.890 Other specified postprocedural states
CPT/HCPCS: 73030

== ENCOUNTER 2019-08-16 03:09 | Outpatient (CLI) | payer OTHER, SELFPAY ==
--- NOTE | 2019-08-16 15:40 | DI.US_ITS ---
EXAM: US RENAL CLINICAL HISTORY: monitor known stone N20.0 CALCULUS OF KIDNEY TECHNIQUE: Ultrasound performed using standard protocol. COMPARISON: US renal from 01/04/2019 FINDINGS: The prevoid bladder volume measured 119 cc. There is a postvoid residual of 5 cc. No bladder wall t hickening or trabeculation is seen. The right kidney measures 11.8 cm in length. The left kidney me asures 11.8 cm in length. There is a 5 millimeter nonobstructing stone in the cortex of the lateral aspect of the left kidney. No right renal calculi or hydronephrosis is seen. IMPRESSION: No change in 5 millimeter non-obstructing left renal calculus.
== END 2019-08-16 03:29 ==
PROVIDERS: PCP Family Medicine; Visit Provider Urology
DX: N20.0 Calculus of kidney (principal)
CPT/HCPCS: 76770

== ENCOUNTER 2019-08-28 11:12 | Outpatient (CLI) | payer OTHER, SELFPAY ==
--- NOTE | 2019-08-28 10:59 | DI.RAD_ITS ---
EXAM: XR SHOULDER RT COMPLETE 2+V INDICATION: fell on ice, shoulder pain M25.511. COMPARISON: XR SHOULDER RT COMPLETE 2+V from 07/15/2019 TECHNIQUE: 2D digital imaging was performed. FINDINGS: There are again seen postsurgical changes of resection of the distal right clavicle. Bones, joints a nd soft tissues are otherwise unremarkable.
== END 2019-08-28 11:32 ==
PROVIDERS: PCP Family Medicine; Visit Provider Nurse Practitioner Family
DX: M25.511 Pain in right shoulder (principal); Z98.890 Other specified postprocedural states; W19.XXXA Unspecified fall, initial encounter
CPT/HCPCS: 73030

== ENCOUNTER 2019-12-02 07:55 | Outpatient (CLI) | payer OTHER, SELFPAY ==
--- NOTE | 2019-12-02 13:00 | DI.US_ITS ---
EXAM: US PELVIS TRANSVAGINAL CLINICAL HISTORY: pelvic pain, S/P Hyst and bilateral salpingo ophre. TECHNIQUE: Transabdominal and tranvaginal imaging was performed using standard protocol. COMPARISON: No exams were available for comparison FINDINGS: Transabdominal and transvaginal exams were performed. The patient is status post hysterectomy and bi lateral salpingo-oophorectomy. The bladder is unremarkable. Both ureteral jets were visualized. Th ere is no free fluid in the pelvis. Two small stones are seen in the left kidney, nonobstructing. T here is no hydronephrosis. There is no gross evidence of a pelvic mass. IMPRESSION: Status post hysterectomy and salpingo-oophorectomy. Two nonobstructing stones in the left kidney. DATA REPOSITORY:
== END 2019-12-02 08:15 ==
PROVIDERS: PCP Family Medicine; Visit Provider Nurse Practitioner Family
DX: R10.2 Pelvic and perineal pain (principal); Z90.710 Acquired absence of both cervix and uterus; Z90.722 Acquired absence of ovaries, bilateral; N20.0 Calculus of kidney
CPT/HCPCS: 76830; 76856

== ENCOUNTER 2020-04-15 05:11 | Outpatient (CLI) | payer OTHER, SELFPAY ==
[2020-04-15 17:49] LABS: TSH (W/Ref FT4) 1.74 uIU/mL (0.36-3.74)
[2020-04-16 04:35] LABS: Vitamin D 25 Total 30.7 ng/ml (30-100)
== END 2020-04-15 05:31 ==
PROVIDERS: PCP Family Medicine; Visit Provider Nurse Practitioner Family
DX: E55.9 Vitamin D deficiency, unspecified (principal); N92.6 Irregular menstruation, unspecified
CPT/HCPCS: 36415; 82306; 84443

== ENCOUNTER 2020-05-06 01:16 | Outpatient (CLI) | payer OTHER, SELFPAY ==
--- NOTE | 2020-05-06 11:05 | DI.MAMMO_ITS ---
EXAM: MG MAMMO SCREENING CLINICAL HISTORY: screening TECHNIQUE: Bilateral full field digital CC and MLO mammographic images were obtained with 3D tomosyn thesis and utilizing computer aided detection (CAD). COMPARISON: Available for comparison. FINDINGS: Masses/Architectural Distortion: None seen. Microcalcifications: No suspicious pleomorphic-type are seen. Skin Thickening/Nipple Retraction: None. IMPRESSION: 1. No significant interval change with no specific features of malignancy noted. 2. Unless there is more urgent need, screening mammography is recommended, as per [employer] guidelines. BI-RADS Category 1 - Negative Breast Density - Category C - Heterogeneously dense The mammogram demonstrates the patient's breast tissue is dense. Dense breast tissue is very common a nd is not abnormal but dense breast tissue can make it harder to find cancer on a mammogram. Also, de nse breast tissue may increase their breast cancer risk. This information about the result of the [facility] mogram report was provided to the patient to raise their awareness. Use this report when you speak wi th the patient about their risks for breast cancer, which includes their family history. At that time , you may recommend for more screening tests (Ultrasound or MRI) as they might be useful based on the ir risk. A negative radiographic report should not delay biopsy if a dominant or clinically suspicious mass is present. Up to ten percent of cancers are not identified on mammography. A negative report may reinforce clinical impression. Adenosis and dense breasts may obscure an underlying neoplasm. False positive reports average 6 to 10%. Patient will receive a letter notifying them of these results.
== END 2020-05-06 01:36 ==
PROVIDERS: PCP Family Medicine; Visit Provider Nurse Practitioner Family
DX: Z12.31 Encounter for screening mammogram for malignant neoplasm of breast (principal); R92.2 Inconclusive mammogram
CPT/HCPCS: 77063; 77067

== ENCOUNTER 2020-08-31 11:08 | Outpatient (CLI) | payer OTHER, SELFPAY ==
--- NOTE | 2020-08-31 13:32 | DI.RAD_ITS ---
EXAM: 2D digital imaging was performed. CLINICAL HISTORY: left flank pain, h/o kidney stone, low back pain, M54.5, R10.9, Z87.442. COMPARISON: CR XR ABDOMEN FLAT PLATE from 10/11/2018 TECHNIQUE: Supine views of the abdomen performed. FINDINGS: BOWEL GAS PATTERN: Nondistended. CALCIFICATIONS: No definite urinary tract calculi are identified. Bowel is seen overlying the left k idney. OSSEOUS STRUCTURES: Normal for age. OTHER FINDINGS: Phleboliths are seen in the pelvis. IMPRESSION: 1. Nonobstructive bowel gas pattern. 2. No definite urinary tract calculi. DATA REPOSITORY: RADIATION DOSE DELIVERED:
== END 2020-08-31 11:28 ==
PROVIDERS: PCP Family Medicine; Visit Provider Nurse Practitioner Gerontology
DX: R10.9 Unspecified abdominal pain (principal); Z87.442 Personal history of urinary calculi; M54.5 Low back pain
CPT/HCPCS: 74018

== ENCOUNTER 2021-01-15 01:58 | Outpatient (CLI) | payer OTHER, SELFPAY ==
[2021-01-15 12:21] LABS: HCT 42.3 % (36.0-46.0); HGB 14.4 g/dL (11.2-15.7); MCH 30.2 pg (27.0-33.0); MCV 88.7 fL (80-95); MPV 9.6 fL (8.0-11.0); Platelet Count 224 10^3/uL (130-400); RBC 4.77 10^6/uL (3.93-5.22); RDW 11.9 % (11.7-14.6); RDW-SD 38.7 fL; WBC 6.94 10^3/uL (4.4-10.8)
[2021-01-15 12:23] LABS: Hemoglobin A1C 5.2 % (<5.7)
[2021-01-15 14:00] LABS: ALT 66 U/L (14-59); AST 22 U/L (15-37); Alkaline Phosphatase 87 U/L (46-116); Anion Gap 8.5 mmol/L (3-11); BUN 17 mg/dL (7-18); Bilirubin, Total 0.5 mg/dL (0.2-1.0); CO2 27.5 mmol/L (21.0-32.0); CREATININE 0.8 mg/dL (0.55-1.02); Calcium 9.1 mg/dL (8.5-10.1); Calculated LDL 140 mg/dL (<100); Chloride 106 mmol/L (98-107); Cholesterol 229 mg/dL (<200); Glucose 96 mg/dL (74-106); HDL Cholesterol 66 mg/dL (40-60); Sodium 142 mmol/L (136-145); TSH (W/Ref FT4) 1.21 uIU/mL (0.36-3.74); Total Protein 7.2 g/dL (6.4-8.2); Triglyceride 115 mg/dL (<150); Vitamin B12 674 pg/mL (193-986)
[2021-01-15 14:10] LABS: C-Reactive Protein 0.39 mg/dL (0.0-0.3)
== END 2021-01-15 01:59 | disposition home or self-care (01) ==
LOC: LBO 01:58
PROVIDERS: PCP Family Medicine; Visit Provider Family Medicine
DX: Z00.00 Encounter for general adult medical examination without abnormal findings (principal); G62.9 Polyneuropathy, unspecified; E11.9 Type 2 diabetes mellitus without complications; Z13.220 Encounter for screening for lipoid disorders
CPT/HCPCS: 36415; 80053; 80061; 85027; 82607; 83036; 84443; 86140

== ENCOUNTER 2021-01-22 08:58 | Outpatient (CLI) | payer OTHER, SELFPAY ==
[2021-01-25 04:50] LABS: Vitamin D 25 Total 45.1 ng/mL (30-100)
== END 2021-01-22 08:59 | disposition home or self-care (01) ==
LOC: LBO 09:02
PROVIDERS: PCP Family Medicine; Visit Provider Family Medicine
DX: E55.9 Vitamin D deficiency, unspecified (principal); M25.551 Pain in right hip; M25.552 Pain in left hip
CPT/HCPCS: 36415; 82306

== ENCOUNTER 2021-10-20 15:12 | Outpatient (REF) | payer OTHER, SELFPAY ==
[2021-10-21] LABS: COVID-19 RT-PCR UVMMC Result Negative (Negative)
== END 2021-10-20 15:13 | disposition home or self-care (01) ==
LOC: LBN 15:12
PROVIDERS: PCP Family Medicine; Visit Provider Obstetrics & Gynecology
DX: Z20.822 Contact with and (suspected) exposure to COVID-19 (principal)
CPT/HCPCS: U0003

== ENCOUNTER 2021-12-16 07:58 | Outpatient (CLI) | payer OTHER, SELFPAY ==
[2021-12-16 10:46] LABS: Source Nasal/Nares
[2021-12-16 14:11] LABS: COVID-19 PCR Negative (Negative)
== END 2021-12-16 07:59 | disposition home or self-care (01) ==
LOC: LBO 07:58
PROVIDERS: PCP Family Medicine; Visit Provider Obstetrics & Gynecology
DX: Z20.822 Contact with and (suspected) exposure to COVID-19 (principal)
CPT/HCPCS: 87635

== ENCOUNTER → 2022-02-24 02:06 | Outpatient (CLI) | payer OTHER, SELFPAY ==
--- NOTE | 2022-02-24 08:00 | DI.MAMMO_ITS ---
Exam(s) MAMMO SCREENING EXAM: MAMMO SCREENING CLINICAL HISTORY: screening,Z12.39 TECHNIQUE: Bilateral full field digital CC and MLO mammographic images were obtained with 3D tomosyn thesis and utilizing computer aided detection (CAD). COMPARISON: Available for comparison. FINDINGS: Masses/Architectural Distortion: None seen. Microcalcifications: No suspicious pleomorphic-type are seen. Skin Thickening/Nipple Retraction: None. IMPRESSION: 1. No significant interval change with no specific features of malignancy noted. 2. Unless there is more urgent need, screening mammography is recommended, as per [employer] guidelines. BI-RADS Category 1 - Negative Breast Density - Category C - Heterogeneously dense Breast density category C or D implies that the patient has dense breast tissue. Dense breast tissue is very common and is not abnormal but dense breast tissue can make it harder to find cancer on a ma mmogram. Also, dense breast tissue may increase their breast cancer risk. This information about the result of the mammogram report was provided to the patient to raise their awareness. Use this report when you speak with the patient about their risks for breast cancer, which includes their family hist ory. At that time, you may recommend for more screening tests (Ultrasound or MRI) as they might be us eful based on their risk. A negative radiographic report should not delay biopsy if a dominant or clinically suspicious mass is present. Up to ten percent of cancers are not identified on mammography. A negative report may reinforce clinical impression. Adenosis and dense breasts may obscure an underlying neoplasm. False positive reports average 6 to 10%. Patient will receive a letter notifying them of these results.
== END ==
PROVIDERS: PCP Family Medicine; Visit Provider Family Medicine
DX: Z12.31 Encounter for screening mammogram for malignant neoplasm of breast (principal)
CPT/HCPCS: 77063; 77067

== ENCOUNTER → 2022-03-04 01:35 | Outpatient (CLI) | payer OTHER, SELFPAY ==
--- NOTE | 2022-03-04 06:30 | DI.DEXA_ITS ---
Exam(s) XR DEXA BONE DENSITY W/WO VALENTE EXAM: XR DEXA BONE DENSITY W/WO VALENTE CLINICAL HISTORY: osteoporosis, m81.0 TECHNIQUE: [id number] C densitometer analysis of left hip, lumbar spine and left forearm. COMPARISON: No exams were available for comparison FINDINGS: Lateral view of the thoracic and lumbar spine shows no evidence of compression fractures. Bone mineral density measurements of the lumbar spine correspond to a total T-score of 0.2, in the n ormal range. Bone mineral density measurements of the left hip correspond to a total T-score of 0.2 . The femoral neck T-score is -0.9, in the normal range.. The left forearm bone mineral density measurements correspond to a T-score of the distal 3rd of -0.1 , in the normal range.. IMPRESSION: Normal bone mineral density.
== END ==
PROVIDERS: PCP Family Medicine; Visit Provider Family Medicine
DX: M81.0 Age-related osteoporosis without current pathological fracture (principal)
CPT/HCPCS: 77080

== ENCOUNTER 2022-04-19 17:24 | Outpatient (REF) | payer OTHER, SELFPAY ==
[2022-04-19 09:12] LABS: Source Nasal/Nares
[2022-04-19 10:09] LABS: COVID-19 PCR Negative (Negative)
== END 2022-04-19 17:25 | disposition home or self-care (01) ==
LOC: LBN 17:24
PROVIDERS: PCP Family Medicine; Visit Provider Obstetrics & Gynecology
DX: Z20.822 Contact with and (suspected) exposure to COVID-19 (principal); R05.8 Other specified cough
CPT/HCPCS: 87635

== ENCOUNTER 2022-05-23 03:05 | Outpatient (CLI) | payer OTHER, SELFPAY ==
[2022-05-23 18:38] LABS: TSH (W/Ref FT4) 2.41 uIU/mL (0.36-3.74)
== END 2022-05-23 03:06 | disposition home or self-care (01) ==
LOC: LBO 03:06
PROVIDERS: PCP Family Medicine; Visit Provider Obstetrics & Gynecology
DX: R23.2 Flushing (principal); I10 Essential (primary) hypertension
CPT/HCPCS: 36415; 84443

== ENCOUNTER 2022-07-18 15:52 | Outpatient (REF) | payer OTHER, SELFPAY ==
[2022-07-18 14:48] LABS: Source Nasal/Nares
[2022-07-18 17:12] LABS: COVID-19 PCR Negative (Negative)
== END 2022-07-18 15:53 | disposition home or self-care (01) ==
LOC: LBN 15:52
PROVIDERS: PCP Family Medicine; Visit Provider Obstetrics & Gynecology
DX: J02.9 Acute pharyngitis, unspecified (principal); Z20.822 Contact with and (suspected) exposure to COVID-19
CPT/HCPCS: 87635

== ENCOUNTER 2022-08-22 15:05 | Outpatient (CLI) | payer OTHER, SELFPAY ==
[2022-08-22 15:21] LABS: Source Nasal/Nares
[2022-08-22 15:54] LABS: COVID-19 PCR Negative (Negative)
== END 2022-08-22 15:06 | disposition home or self-care (01) ==
LOC: LBO 15:05
PROVIDERS: PCP Family Medicine; Visit Provider Obstetrics & Gynecology
DX: Z20.822 Contact with and (suspected) exposure to COVID-19 (principal)
CPT/HCPCS: 87635

== ENCOUNTER 2023-02-20 14:54 | Outpatient (CLI) | payer OTHER, SELFPAY ==
[2023-02-20 15:21] LABS: ALT 39 U/L (14-59); AST 18 U/L (15-37); Albumin 3.9 g/dL (3.4-5.0); Alkaline Phosphatase 88 U/L (46-116); Anion Gap 7.5 mmol/L (3-11); BUN 14 mg/dL (7-18); Bilirubin, Total 0.3 mg/dL (0.2-1.0); CO2 33.5 mmol/L (21.0-32.0); CREATININE 0.9 mg/dL (0.55-1.02); Calcium 9.1 mg/dL (8.5-10.1); Chloride 102 mmol/L (98-107); Estimated GFR 76.44 (mL/min/1.73m2); Glucose 103 mg/dL (74-106); Sodium 143 mmol/L (136-145); Total Protein 7.5 g/dL (6.4-8.2)
== END 2023-02-20 14:55 | disposition home or self-care (01) ==
LOC: LBO 14:54
PROVIDERS: PCP Family Medicine; Visit Provider Family Medicine
DX: I10 Essential (primary) hypertension (principal)
CPT/HCPCS: 36415; 80053

== ENCOUNTER 2023-03-01 03:09 | Outpatient (CLI) | payer OTHER, SELFPAY ==
--- NOTE | 2023-03-01 08:45 | DI.MAMMO_ITS ---
Exam(s) MAMMO SCREENING EXAM: MAMMO SCREENING CLINICAL HISTORY: screening, Z12.39 TECHNIQUE: Mammograms were interpreted according to the usual protocol including computer analysis w iFormulary CAD system, tomosynthesis and C-view imaging. COMPARISON: 2013 through 2021 FINDINGS: The breasts are composed of scattered fibroglandular densities, Breast Density category B. No suspicious masses or suspicious microcalcifications are seen. No skin thickening or abnormal axillary lymph nodes are seen. There has been no significant change from prior exams. IMPRESSION: BI-RADS Category 1, Negative mammogram Yearly screening mammography is recommended. Breast Density - Category B, scattered fibroglandular densities. A negative radiographic report should not delay biopsy if a dominant or clinically suspicious mass is present. Up to ten percent of cancers are not identified on mammography. A negative report may reinforce clinical impression. Adenosis and dense breasts may obscure an underlying neoplasm. False positive reports average 6 to 10%. Patient will receive a letter notifying them of these results.
== END 2023-03-01 03:29 ==
LOC: DI 03:09
PROVIDERS: PCP Family Medicine; Visit Provider Family Medicine
DX: Z12.31 Encounter for screening mammogram for malignant neoplasm of breast (principal)
CPT/HCPCS: 77063; 77067

== ENCOUNTER 2023-08-09 12:28 | Outpatient (CLI) | payer OTHER, SELFPAY ==
[2023-08-09 16:41] LABS: TSH (W/Ref FT4) 1.53 uIU/mL (0.36-3.74)
== END 2023-08-09 12:29 | disposition home or self-care (01) ==
LOC: LBO 12:28
PROVIDERS: PCP Family Medicine; Visit Provider Family Medicine
DX: E03.9 Hypothyroidism, unspecified (principal)
CPT/HCPCS: 36415; 84443

== ENCOUNTER 2023-08-22 14:05 | Outpatient (CLI) | payer OTHER, SELFPAY ==
[2023-08-22 14:17] LABS: ALT 138 U/L (14-59); AST 52 U/L (15-37); Albumin 3.7 g/dL (3.4-5.0); Alkaline Phosphatase 89 U/L (46-116); Anion Gap 6.3 mmol/L (3-11); BUN 13 mg/dL (7-18); Bilirubin, Total 0.3 mg/dL (0.2-1.0); CO2 33.7 mmol/L (21.0-32.0); Calcium 9.3 mg/dL (8.5-10.1); Calculated LDL 109 mg/dL (<100); Chloride 101 mmol/L (98-107); Cholesterol 221 mg/dL (<200); Estimated GFR 67.36 (mL/min/1.73m2); Glucose 101 mg/dL (74-106); HDL Cholesterol 66 mg/dL (40-60); Potassium 3.7 mmol/L (3.5-5.1); Sodium 141 mmol/L (136-145); Total Protein 7.3 g/dL (6.4-8.2); Triglyceride 230 mg/dL (<150)
== END 2023-08-22 14:06 | disposition home or self-care (01) ==
LOC: LBO 14:06
PROVIDERS: PCP Family Medicine; Visit Provider Family Medicine
DX: I10 Essential (primary) hypertension (principal)
CPT/HCPCS: 36415; 80053; 80061

== ENCOUNTER 2023-09-11 03:18 | Outpatient (CLI) | payer OTHER, SELFPAY ==
[2023-09-11 12:03] LABS: ALT 62 U/L (14-59); AST 28 U/L (15-37); Albumin 3.9 g/dL (3.4-5.0); Alkaline Phosphatase 106 U/L (46-116); Anion Gap 8.8 mmol/L (3-11); BUN 12 mg/dL (7-18); Bilirubin, Total 0.7 mg/dL (0.2-1.0); CO2 28.2 mmol/L (21.0-32.0); CREATININE 0.9 mg/dL (0.55-1.02); Calcium 9.3 mg/dL (8.5-10.1); Chloride 104 mmol/L (98-107); Estimated GFR 76.44 (mL/min/1.73m2); Glucose 103 mg/dL (74-106); Potassium 3.8 mmol/L (3.5-5.1); Sodium 141 mmol/L (136-145); Total Protein 7.3 g/dL (6.4-8.2)
== END 2023-09-11 03:19 | disposition home or self-care (01) ==
LOC: LBO 03:18
PROVIDERS: PCP Family Medicine; Visit Provider Family Medicine
DX: I10 Essential (primary) hypertension (principal)
CPT/HCPCS: 36415; 80053

== ENCOUNTER 2023-12-13 12:56 | Outpatient (CLI) | payer OTHER, SELFPAY ==
[2023-12-13 12:29] LABS: HCT 43.6 % (36.0-46.0); HGB 14.9 g/dL (11.2-15.7); MCH 29.9 pg (27.0-33.0); MCHC 34.2 % (32.0-36.0); MCV 88 fL (80-95); MPV 9.3 fL (8.0-11.0); Platelet Count 246 10^3/uL (130-400); RBC 4.98 10^6/uL (3.93-5.22); RDW-SD 38.5 fL; WBC 8.03 10^3/uL (4.4-10.8)
[2023-12-13 12:42] LABS: INR 1.1 (0.9-1.1); PTT Activated 28.2 sec (23.6-32.8); Prothrombin Time 10.6 sec (9.1-11.1)
[2023-12-13 12:55] LABS: ALT 58 U/L (14-59); AST 29 U/L (15-37); Alkaline Phosphatase 75 U/L (46-116); Anion Gap 10.2 mmol/L (3-11); BUN 13 mg/dL (7-18); Bilirubin, Total 0.6 mg/dL (0.2-1.0); CO2 28.8 mmol/L (21.0-32.0); Calcium 9.7 mg/dL (8.5-10.1); Chloride 101 mmol/L (98-107); Estimated GFR 66.95 (mL/min/1.73m2); Glucose 133 mg/dL (74-106); Potassium 3.4 mmol/L (3.5-5.1); Sodium 140 mmol/L (136-145); Total Protein 7.6 g/dL (6.4-8.2)
== END 2023-12-13 12:57 | disposition home or self-care (01) ==
LOC: LBO 12:56
PROVIDERS: PCP Family Medicine; Visit Provider Family Medicine
DX: Z87.898 Personal history of other specified conditions (principal); I10 Essential (primary) hypertension
CPT/HCPCS: 36415; 80053; 85027; 85610; 85730

== ENCOUNTER 2024-04-18 02:43 | Outpatient (CLI) | payer OTHER, SELFPAY ==
--- NOTE | 2024-04-18 07:45 | DI.MAMMO_ITS ---
Exam(s) MAMMO SCREENING EXAM: MAMMO SCREENING CLINICAL HISTORY: screening,z12.39 TECHNIQUE: Bilateral full field digital CC and MLO mammographic images were obtained with 3D tomosyn thesis and utilizing computer aided detection (CAD). COMPARISON: Available for comparison. FINDINGS: Masses/Architectural Distortion: None seen. Microcalcifications: No suspicious pleomorphic-type are seen. Skin Thickening/Nipple Retraction: None. IMPRESSION: 1. No significant interval change with no specific features of malignancy noted. 2. Unless there is more urgent need, screening mammography is recommended, as per [employer] guidelines. BI-RADS Category 1 - Negative Breast Density - Category C - Heterogeneously dense Breast density category C or D implies that the patient has dense breast tissue. Dense breast tissue is very common and is not abnormal but dense breast tissue can make it harder to find cancer on a ma mmogram. Also, dense breast tissue may increase their breast cancer risk. This information about the result of the mammogram report was provided to the patient to raise their awareness. Use this report when you speak with the patient about their risks for breast cancer, which includes their family hist ory. At that time, you may recommend for more screening tests (Ultrasound or MRI) as they might be us eful based on their risk. A negative radiographic report should not delay biopsy if a dominant or clinically suspicious mass is present. Up to ten percent of cancers are not identified on mammography. A negative report may reinforce clinical impression. Adenosis and dense breasts may obscure an underlying neoplasm. False positive reports average 6 to 10%. Patient will receive a letter notifying them of these results.
== END 2024-04-18 03:03 ==
LOC: DI 02:43
PROVIDERS: PCP Family Medicine; Visit Provider Family Medicine
DX: Z12.31 Encounter for screening mammogram for malignant neoplasm of breast (principal)
CPT/HCPCS: 77063; 77067

== ENCOUNTER 2024-10-21 03:15 | Outpatient (CLI) | payer OTHER, SELFPAY ==
--- NOTE | 2024-10-21 07:15 | DI.MRI_ITS ---
Exam(s) MR LUMBAR SPINE WO EXAM: MR LUMBAR SPINE WO CLINICAL HISTORY: spinal stenosis L 4-5,m48.061. TECHNIQUE: Multiplanar multisequence MRI of the Lumbar spine was performed. COMPARISON: MR MRI - LUMBAR SPINE WO CONTRAST from 07/16/[address] chest PE abd pelvis w from 05/26/2018 CR XR DEXA BONE DENSITY W/WO VALENTE from 03/04/2022 FINDINGS: Bones: The last intervertebral disc space is designated the L5/S1 level for the numbering purpose of this examination. The vertebral body heights are well maintained. There is a mild left convex lumba r scoliosis. Mild degenerative endplate signal changes are present. There is again seen lumbarizati on of S1. Cord: The conus tip ends at the L1 level. It is of normal size and signal intensity. T12-L1: No disc herniations or bulges are present. No central spinal canal or neural foraminal stenos is. L1-2: No disc herniations or bulges are present. No central spinal canal or neural foraminal stenosis . L2-3: There is a mild diffuse disc bulge. No central spinal canal or neural foraminal stenosis. L3-4: There is a mild diffuse disc bulge. No central spinal canal or neural foraminal stenosis. L4-5: There is a mild diffuse disc bulge. Mild degenerative changes of the facets are seen. This re sults in mild narrowing of the central spinal canal. There is mild right neural foraminal narrowing. No significant left neural foraminal stenosis. No central spinal canal or neural foraminal stenosi s. L5-S1: There is a mild diffuse disc bulge. There are degenerative changes of the facets, left greate r than right. No significant central spinal canal stenosis. There is mild narrowing of the left delaney ral foramen. No significant right neural foraminal stenosis is present. Soft tissues: The visualized SI joints and sacrum are well maintained. The paraspinal soft tissues ar e unremarkable. IMPRESSION: Multilevel degenerative changes in the lumbar spine resulting in mild central spinal canal or neural foraminal narrowing as described above. DATA REPOSITORY:
== END 2024-10-21 03:35 ==
LOC: DI 03:15
PROVIDERS: PCP Family Medicine; Visit Provider Family Medicine
DX: M48.061 Spinal stenosis, lumbar region without neurogenic claudication (principal)
CPT/HCPCS: 72148

== ENCOUNTER 2024-12-05 08:41 | Outpatient (CLI) | payer OTHER, SELFPAY ==
--- NOTE | 2024-12-05 06:00 | DI.RAD_ITS ---
Exam(s) XR PAIN CLINIC LUMBAR SP 2V EXAM: XR PAIN CLINIC LUMBAR SP 2V CLINICAL HISTORY: DX: Lumbar Radiculopathy TECHNIQUE: 2D and realtime digital imaging was performed. CONTRAST MATERIAL: Refer to procedure report. COMPARISON: No exams were available for comparison FINDINGS: Fluoroscopy was provided for Dr. Griggs during the performance of a lumbar epidural steroid injection. Please refer to the procedure report for complete details. Ka,r=7.66 mGy IMPRESSION: RADIATION DOSE DELIVERED: 0.0 0.0 0
[2024-12-05 08:50] VITALS: BP 102/73; PULSE 74; RESP 20; TEMP 36.7; O2SAT 100
[2024-12-05 09:32] VITALS: PULSE 67; PULSE 72; RESP 10; O2SAT 99
[2024-12-05 09:33] VITALS: BP 112/73; PULSE 63; PULSE 71; RESP 12; O2SAT 100
[2024-12-05 09:40] VITALS: PULSE 72; RESP 14; O2SAT 100
--- NOTE | 2024-12-05 09:45 | PDOC.PAIN ---
Date of service: 12/05/24 Time of Service: 09:45 Pain Managment Procedure Note Procedure Note Procedure Note: PROCEDURE NOTE LUMBAR EPIDURAL STEROID INJECTION Date of Service: December 05, 2024 Patient:Rhoda Aponte? Provider: Zachary Griggs DO, MPH Rhoda Mata has been referred to the [facility] for a lumbar epidural steroid injection. Pre-operative diagnosis: Lumbosacral Radiculopathy ICD-10 M54.16 Post-operative diagnosis: Same Pre-Procedure Pain: VAS= 5/10 Comments: I previously evaluated her in the office and her symptoms are unchanged. Pain radiating down the right leg. Rhoda was interviewed and the medical record was reviewed.? There were no medical, pharmacologic, radiographic or other structural contraindications to attempting fluoroscopically guided Lumbar epidural steroid injection.? Risks, potential side effects, indications, and potential benefits of the procedure were reviewed with Rhoda.? Questions and concerns were addressed.? After it was clear that Rhoda was fully informed about the procedure, the printed consent form was signed by the patient and myself.? Rhoda was placed in the prone position on the fluoroscopy table and automated blood pressure cuff and pulse oximeter applied. The skin entry point for entering/approaching the epidural space for the lumbar epidural steroid injection was marked. Following thorough chlorhexadine preparation of the skin and draping and 1% lidocaine infiltration of the skin entry point and subcutaneous tissues, an 18 gauge Touhy needle was placed and advanced under fluoroscopic guidance and with loss of resistance technique into the L5-S1 epidural space. Needle tip placement and depth were aided and confirmed by fluoroscopy. There was no paresthesia or return of blood or CSF through the needle. 1 mls of Omnipaque 240 was injected with clear epidural spread confirmed with fluoroscopy. 80 mg of Depo-Medrol was? injected. This was followed by 1 ml of preservative-free normal saline to flush the steroid out of the needle. There was no unusual discomfort expressed by Rhoda. The needle was withdrawn without difficulty. (49 mls of Omnipaque was wasted) Rhoda was observed and was without hemodynamic, neurologic, or allergic reactions.? Fluoroscopic images were digitally archived. Rhoda's vital signs were stable throughout the procedure and were as recorded in nursing records. Follow up plans and appointments were discussed with Rhoda. Post procedure instruction was given as documented in nursing records and having met discharge criteria Rhoda was discharged from the [facility]. COMMENTS: No apparent complications. Post-procedure pain: VAS= 5/10. Rhoda to contact [facility] as needed. If at least 50% improvement in pain and/or function for at least 3 months is achieved, this procedure can be repeated. I personally performed this entire procedure. ZACHARY GRIGGS DO, MPH ABPMR-subspecialty board certification in Pain Medicine [facility] Coding Conscious Sedation used for procedure: No CPT Codes: Inj Spine L/S w/Imaging - 19416 ([id number] ~G) Additional Codes: Date of Service (50845) Date of service: 12/05/24
[2024-12-05] MEDS: methylPREDNISolone ACETATE 80 MG/ML VIAL IJ (09:51)
[2024-12-05] MEDS: Epidural Tray 1 EACH MC (09:51)
[2024-12-05] MEDS: Omnipaque 240 MG/ML 50 ML BTL IJ (09:51)
== END 2024-12-05 08:42 | disposition home or self-care (01) ==
LOC: PC 08:42
PROVIDERS: PCP Family Medicine; Visit Provider Preventive Medicine Occupational Medicine
DX: M54.16 Radiculopathy, lumbar region (principal)
CPT/HCPCS: 62323; 72100; J1010; Q9967

== ENCOUNTER 2025-01-20 13:55 | Outpatient (CLI) | payer OTHER, SELFPAY ==
--- NOTE | 2025-01-20 13:27 | DI.RAD_ITS ---
Exam(s) XR CERVICAL SPINE COMP 4-5V EXAM: XR CERVICAL SPINE COMP 4-5V CLINICAL HISTORY: neck and arm pain M54.12 RADICULOPATHY CERVICAL REGION G89.29 CHRONIC PAIN. TECHNIQUE: 2D digital imaging was performed. COMPARISON: No exams were available for comparison FINDINGS: Six views. No evidence of fracture listhesis, nor offset of the spinal laminar line. There is mild-moderate dis c space narrowing at each level in the cervical spine. There are no cervical ribs. On the oblique v iews there multilevel tiny bilateral Luschka joint osteophytes. No large Luschka joint osteophytes. Mild facet joint degenerative changes. Bone density normal. No osseous lesions. IMPRESSION: Multilevel disc space narrowing. DATA REPOSITORY: RADIATION DOSE DELIVERED:
== END 2025-01-20 14:15 ==
LOC: DI 13:56
PROVIDERS: PCP Family Medicine; Visit Provider Family Medicine
DX: M54.12 Radiculopathy, cervical region (principal); G89.29 Other chronic pain
CPT/HCPCS: 72050

== ENCOUNTER 2025-01-30 00:45 | Outpatient (CLI) | payer OTHER, SELFPAY ==
--- NOTE | 2025-01-30 08:15 | DI.MRI_ITS ---
Exam(s) MR CERVICAL SPINE WO EXAM: MR CERVICAL SPINE WO CLINICAL HISTORY: cervial and arm pain, cervical radiculitis M54.12 TECHNIQUE: Multiplanar multisequence MRI of the cervical spine was performed without intravenous contrast. CR XR CERVICAL SPINE COMP 4-5V from 01/20/2025 FINDINGS: BONES: Vertebral body heights are maintained. Intervertebral disc spaces are normal. Alignment is normal. Bone marrow signal intensity is within normal limits. CERVICAL CORD: Craniovertebral junction is unremarkable. The cervical cord is normal size and signal intensity. SOFT TISSUES: Unremarkable. C2-3: No disc herniation or bulge is identified. No significant central spinal canal or neural foraminal stenosis. C3-4: No disc herniation or bulge is identified. No significant central spinal canal or neural foraminal stenosis C4-5: No disc herniation or bulge is identified. No significant central spinal canal or neural foraminal stenosis C5-6: There is mild prominence of the osteophyte disc complex. No significant central spinal canal stenosis is seen at this level. There is moderate bilateral neural foraminal stenosis present, right greater than left. C6-7: There is mild prominence of the osteophyte disc complex at this level. No significant central spinal canal stenosis is seen. There is mild left neural foraminal narrowing. No significant right neural foraminal stenosis is seen. C7-T1: No disc herniation or bulge is identified. No significant central spinal canal or neural foraminal stenosis IMPRESSION: Degenerative changes seen in the cervical spine particularly at C5-6 and C6-C7 as described above. DATA REPOSITORY:
== END 2025-01-30 01:05 ==
LOC: DI 00:45
PROVIDERS: PCP Family Medicine; Visit Provider Family Medicine
DX: M54.12 Radiculopathy, cervical region (principal); M50.022 Cervical disc disorder at C5-C6 level with myelopathy
CPT/HCPCS: 72141

== ENCOUNTER 2025-02-05 10:02 | Outpatient (CLI) | payer OTHER, SELFPAY ==
[2025-02-06 11:09] LABS: Lyme Ab w Rflx to Lyme Confirm Negative (Negative)
[2025-02-08 10:37] LABS: Anaplasma phagocytophilum Negative (Negative); B. miyamotoi PCR Negative (Negative); Babesia divergens/MO-1 Negative (Negative); Babesia duncani Negative (Negative); Babesia microti Negative (Negative); Ehrlichia chaffeensis Negative (Negative); Ehrlichia ewingii/canis Negative (Negative); Ehrlichia muris eauclairensis Negative (Negative)
== END 2025-02-05 10:03 | disposition home or self-care (01) ==
LOC: LBO 10:02
PROVIDERS: PCP Family Medicine; Visit Provider Family Medicine
DX: M54.12 Radiculopathy, cervical region (principal)
CPT/HCPCS: 36415; 87798; 86618

== ENCOUNTER 2025-02-06 08:46 | Outpatient (CLI) | payer OTHER, SELFPAY ==
--- NOTE | 2025-02-06 08:45 | DI.RAD_ITS ---
Exam(s) XR ELBOW RT COMPLETE EXAM: XR ELBOW RT COMPLETE CLINICAL HISTORY: rt elbow pain, M25.521. TECHNIQUE: 2D digital imaging was performed. Three views. COMPARISON: CR RIGHT ELBOW COMPLETE from 12/01/2017 FINDINGS: BONES: No acute fracture is present. Old radial neck fracture has healed without significant residual deformity. No bony destructive lesion is seen. JOINTS: The elbow is normally aligned. No joint effusion is seen. No significant joint space narrowing. No significant degenerative changes. SOFT TISSUE: Normal. IMPRESSION: Unremarkable radiographs of the right elbow. DATA REPOSITORY: RADIATION DOSE DELIVERED:
== END 2025-02-06 09:06 ==
LOC: DI 08:46
PROVIDERS: PCP Family Medicine; Visit Provider Family Medicine
DX: M25.521 Pain in right elbow (principal)
CPT/HCPCS: 73080

== ENCOUNTER 2025-02-20 08:10 | Outpatient (CLI) | payer OTHER, SELFPAY ==
--- NOTE | 2025-02-20 06:00 | DI.RAD_ITS ---
Exam(s) XR PAIN CLINIC CERVICAL SP 2V EXAM: XR PAIN CLINIC CERVICAL SP 2V CLINICAL HISTORY: Dx: Cervical Radiculopathy. TECHNIQUE: Fluoroscopy was provided for the referring physician for guidance with performing pain clinic injection procedure. COMPARISON: No exams were available for comparison FINDINGS: Please see procedure note for details. Fluoro time: 24.8 seconds RADIATION DOSE DELIVERED: Ka,r=2.45 mGy
[2025-02-20 08:14] VITALS: BP 111/75; PULSE 68; RESP 20; TEMP 36.6; O2SAT 98
[2025-02-20 08:40] VITALS: PULSE 67; O2SAT 98
[2025-02-20 08:42] VITALS: BP 113/72; PULSE 71; PULSE 72; RESP 16; O2SAT 99
[2025-02-20 08:46] VITALS: BP 112/71; PULSE 70; RESP 10; O2SAT 100
[2025-02-20 08:50] VITALS: PULSE 66; RESP 15; O2SAT 99
[2025-02-20] MEDS: Omnipaque 240 MG/ML 50 ML BTL IJ (08:58)
[2025-02-20] MEDS: Epidural Tray 1 EACH MC (08:58)
[2025-02-20] MEDS: Dexamethasone Sod. Phos./Pres-Free 10 MG/ML VIAL IJ (08:58)
--- NOTE | 2025-02-20 09:41 | PDOC.PAIN ---
Date of service: 02/20/25 Time of Service: 09:15 Pain Managment Procedure Note Procedure Note Procedure Note: Procedure Note Cervical Interlaminar Epidural Steroid Injection Date of Service: February 20, 2025 Patient:? Rhoda Mata? Provider:? Hood Griggs DO, MPH Rhoda has been referred to the [facility] for cervical epidural steroid injection.? Pre-operative diagnosis: Cervical Radiculopathy ICD-10 M54.12 Post-operative diagnosis: Same Pre-procedure pain: VAS= 7/10 Comments: I previously evaluated her in the office. Her symptoms are unchanged. Rhoda was interviewed and the medical record was reviewed.? There were no medical, pharmacologic, radiographic or other structural contraindications to attempting fluoroscopically guided cervical interlaminar epidural steroid injection.? Risks, potential side effects, indications, and potential benefits of the procedure were reviewed with Rhoda.? Questions and concerns were addressed.? After it was clear that the patient was fully informed about the procedure, the printed consent form was signed by the patient and myself.? Rhoda was placed in the prone position on the fluoroscopy table and automated blood pressure cuff as well as pulse oximeter was applied. A standard time-out procedure was performed. The skin entry point for entering the epidural space by a midline C7-T1 interlaminar approach was identified under fluoroscopy and marked.? The skin entry point was thoroughly cleaned with Chlorhexadine preparation and the skin was draped.? Next a mixture of 2 mls of 1% lidocaine was infiltrated into the area of the planned skin entry point and underlying subcutaneous tissues.? Next an 18 gauge Tuohy needle was placed under fluoroscopic guidance and with loss of resistance technique into the epidural space utilizing multiple AP and 55 degree contralateral fluoroscopic views.? Upon correct needle placement and loss of resistance, there were no paresthesia or return of blood or CSF through the needle. Next 1 mls of preservative-free Omnipaque 240 was injected with clear epidural spread in the A/P and oblique views. Next, a solution of 15 mg of preservative-free Dexamethasone was injected. This was followed with 1ml of preservative-free normal saline. No unusual discomfort was expressed by Rhoda. The needle was withdrawn without difficulty. (49 mls of Omnipaque and 5 mg of Dexamethasone was wasted) Rhoda was observed and was without hemodynamic, neurologic, or allergic reactions.? Fluoroscopic images were digitally archived. Rhoda's vital signs were stable throughout the procedure and were as recorded in the doc flowsheet by the nursing staff.? If given, dosages of intravenous drugs for anxiolysis and analgesia were documented in MAR. Follow up plans and appointments were discussed with Rhoda.? Post procedure instruction was given as documented in nursing documentation and having met discharge criteria, Rhoda was [facility] from the [facility]. A retrospective review of interlaminar cervical ESIs found that approximately two-thirds of patients with symptomatic cervical radiculopathy from disc herniation were able to avoid surgery for up to 1 year with treatment. Success rate was improved with earlier injection (< 100 days from diagnosis). Tiffanie EL, Batool V, Viv L, Yared AN, Maximino SPANGLER. Cervical epidural steroid injections for symptomatic disc herniations. J Spinal Disord Tech. 2006 December;19(3):183-6. ? COMMENTS: No apparent complications. Post-procedure pain: VAS= 1/10. Rhoda to contact [facility] as needed. If at least 50% improvement in pain and/or function for at least 3 months is achieved, this procedure can be repeated. I personally completed the entire procedure. HOOD GRIGGS DO, MPH ABPMR-subspecialty board certification in Pain Medicine [facility] [facility] Coding Conscious Sedation used for procedure: No CPT Codes: Inj Spine C/T w/Imaging - 68514 ([id number] ~G) Additional Codes: Date of Service (65939) Date of service: 02/20/25 Diagnoses: Cervical radiculopathy
== END 2025-02-20 08:11 | disposition home or self-care (01) ==
LOC: PC 08:10
PROVIDERS: PCP Family Medicine; Visit Provider Preventive Medicine Occupational Medicine
DX: M54.12 Radiculopathy, cervical region (principal)
CPT/HCPCS: 62321; 72040; J1100; Q9967

== ENCOUNTER 2025-03-07 08:46 | Outpatient (RCR) | payer OTHER, SELFPAY ==
--- NOTE | 2025-03-11 12:15 | W.HOLTRPT ---
Date of service: 03/11/25 Time of Service: 12:15 Holter Monitor Report Referring Provider:: adair swift Indications:: Tachycardia Holter Monitor Note: This is a 48-hour Holter monitor. Rhythm throughout was sinus with an average heart rate of 77. Minimum was 53, maximum 117. There were very rare isolated atrial and ventricular ectopic beats. There was no atrial fibrillation, no SVT, no high-grade AV block, no pauses greater than 3 seconds. No symptoms were reported
== END 2025-03-13 23:59 | disposition home or self-care (01) ==
LOC: CARDOPNVT 08:46
PROVIDERS: PCP Family Medicine; Visit Provider Internal Medicine Cardiovascular Disease
DX: R00.0 Tachycardia, unspecified (principal)
CPT/HCPCS: 93227; 93225; 93226

== ENCOUNTER 2025-05-19 13:52 | Outpatient (CLI) | payer OTHER, SELFPAY ==
[2025-05-19 14:32] LABS: ALT 37 U/L (14-59); AST 21 U/L (15-37); Albumin 3.8 g/dL (3.4-5.0); Alkaline Phosphatase 69 U/L (46-116); Anion Gap 8.0 mmol/L (3-11); BUN 11 mg/dL (7-18); Bilirubin, Total 0.8 mg/dL (0.2-1.0); CO2 30.0 mmol/L (21.0-32.0); Calcium 8.6 mg/dL (8.5-10.1); Chloride 104 mmol/L (98-107); Estimated GFR 86.96 (mL/min/1.73m2); Glucose 101 mg/dL (74-106); Potassium 3.8 mmol/L (3.5-5.1); Sodium 142 mmol/L (136-145); Total Protein 7.0 g/dL (6.4-8.2)
== END 2025-05-19 13:53 | disposition home or self-care (01) ==
LOC: LBO 13:52
PROVIDERS: PCP Family Medicine; Visit Provider Family Medicine
DX: I10 Essential (primary) hypertension (principal)
CPT/HCPCS: 36415; 80053

== ENCOUNTER 2025-05-22 04:26 | Outpatient (CLI) | payer OTHER, SELFPAY ==
--- NOTE | 2025-05-22 09:07 | DI.MAMMO_ITS ---
Exam(s) MAMMO SCREENING EXAM: MAMMO SCREENING CLINICAL HISTORY: screening,Z12.39 TECHNIQUE: Bilateral full field digital CC and MLO mammographic images were obtained with 3D tomosynthesis and utilizing computer aided detection (CAD). COMPARISON: Comparison is made with prior examinations. FINDINGS: Masses/Architectural Distortion: No suspicious masses or areas of architectural distortion are present. Microcalcifications: No suspicious pleomorphic-type are seen. Skin Thickening/Nipple Retraction: None. IMPRESSION: 1. No significant interval change with no specific features of malignancy noted. 2. Unless there is more urgent need, screening mammography is recommended, as per [employer] guidelines. BI-RADS Category 1 - Negative Breast Density - Category C - The breast are heterogeneously dense, which may obscure small masses. Breast density Category C or D implies that the patient has dense breast tissue. Dense breast tissue can make it harder to find cancer on a mammogram. Dense breast tissue is also associated with an increased risk of breast cancer. This information about the result of the mammogram report was provided to the patient to raise their awareness. Use this report when you speak with the patient about their risks for breast cancer, which includes their family history. At that time, you may recommend additional screening tests (Ultrasound or MRI) as these tests may add significant information. A negative radiographic report should not delay biopsy if a dominant or clinically suspicious mass is present. Up to ten percent of cancers are not identified on mammography. A negative report may reinforce clinical impression. Adenosis and dense breasts may obscure an underlying neoplasm. False positive reports average 6 to 10%. Patient will receive a letter notifying them of these results.
== END 2025-05-22 04:46 ==
LOC: DI 04:26
PROVIDERS: PCP Family Medicine; Visit Provider Family Medicine
DX: Z12.31 Encounter for screening mammogram for malignant neoplasm of breast (principal)
CPT/HCPCS: 77063; 77067

== ENCOUNTER 2025-06-18 09:15 | Outpatient (CLI) | payer OTHER, SELFPAY ==
--- NOTE | 2025-06-18 06:00 | DI.RAD_ITS ---
Exam(s) XR PAIN CLINIC LUMBAR SP 2V EXAM: XR PAIN CLINIC LUMBAR SP 2V CLINICAL HISTORY: Dx: Lumbar Radiculopathy TECHNIQUE: 2D and realtime digital imaging was performed. CONTRAST MATERIAL: Refer to procedure report. COMPARISON: No exams were available for comparison FINDINGS: Fluoroscopy was provided for Dr. Griggs during the performance of a lumbar epidural steroid injection. Please refer to the procedure report for complete details. Ka,r=15.6 mGy IMPRESSION: RADIATION DOSE DELIVERED: 0.0 0.0 0
[2025-06-18 09:22] VITALS: BP 103/79; PULSE 63; RESP 18; TEMP 36.3; O2SAT 100
[2025-06-18] MEDS: Epidural Tray 1 EACH MC ×2 (10:02→10:28)
[2025-06-18] MEDS: Omnipaque 240 MG/ML 50 ML BTL IJ (10:16)
[2025-06-18] MEDS: methylPREDNISolone ACETATE 40 MG/ML VIAL IJ (10:16)
--- NOTE | 2025-06-18 10:16 | PDOC.PAIN_ITS ---
Date of service: 06/18/25 Time of Service: 10:16 Pain Managment Procedure Note Procedure Note Procedure Note: PROCEDURE NOTE LUMBAR EPIDURAL STEROID INJECTION Date of Service: June 18, 2025 Patient:Rhoda Aponte? Provider: Zachary Griggs DO, MPH Rhoda Mata has been referred to the [facility] for a lumbar epidural steroid injection. Pre-operative diagnosis: Lumbosacral Radiculopathy ICD-10 M54.16 Post-operative diagnosis: Same Pre-Procedure Pain to the right leg: VAS= 5 /10 Comments: She last has this procedure in November 2024 and had >4 months of >50% pain relief. Her right leg pain has mostly returned. Rhoda was interviewed and the medical record was reviewed.? There were no medical, pharmacologic, radiographic or other structural contraindications to attempting fluoroscopically guided Lumbar epidural steroid injection.? Risks, potential side effects, indications, and potential benefits of the procedure were reviewed with Rhoda.? Questions and concerns were addressed.? After it was clear that Rhoda was fully informed about the procedure, the printed consent form was signed by the patient and myself.? Rhoda was placed in the prone position on the fluoroscopy table and automated blood pressure cuff and pulse oximeter applied. The skin entry point for entering/approaching the epidural space for the lumbar epidural steroid injection was marked. Following thorough chlorhexadine preparation of the skin and draping and 1% lidocaine infiltration of the skin entry point and subcutaneous tissues, an 18 gauge Touhy needle was placed and advanced under fluoroscopic guidance and with loss of resistance technique into the L5-S1 epidural space. Needle tip placement and depth were aided and confirmed by fluoroscopy. There was no paresthesia or return of blood or CSF through the needle. 1 mls of Omnipaque 240 was injected with clear epidural spread confirmed with fluoroscopy. 80 mg of Depo-Medrol was? injected. This was followed by 1 ml of preservative-free normal saline to flush the steroid out of the needle. There was no unusual discomfort expressed by Rhoda. The needle was withdrawn without difficulty. (49 mls of Omnipaque was wasted) Rhoda was observed and was without hemodynamic, neurologic, or allergic reactions.? Fluoroscopic images were digitally archived. Rhoda's vital signs were stable throughout the procedure and were as recorded in nursing records. Follow up plans and appointments were discussed with Rhoda. Post procedure instruction was given as documented in nursing records and having met discharge criteria Rhoda was discharged from the [facility]. COMMENTS: No apparent complications. Post-procedure pain: VAS= 5/10. Rhoda to [facility] as needed. If at least 50% improvement in pain and/or function for at least 3 months is achieved, this procedure can be repeated. I personally performed this entire procedure. ZACHARY GRIGGS DO, MPH ABPMR-subspecialty board certification in Pain Medicine [facility] Coding Conscious Sedation used for procedure: No CPT Codes: Inj Spine L/S w/Imaging - [id number] ([id number] ~G) Additional Codes: Date of Service () Diagnoses: lumbar radiculopathy
[2025-06-18 10:27] VITALS: BP 124/83; PULSE 55; RESP 12; O2SAT 100
== END 2025-06-18 09:16 | disposition home or self-care (01) ==
LOC: PC 09:16
PROVIDERS: PCP Family Medicine; Visit Provider Preventive Medicine Occupational Medicine
DX: M54.16 Radiculopathy, lumbar region (principal)
CPT/HCPCS: 62323; 72100; J1010; Q9967